=== PATIENT | male | born 1960 | race African-American/Black ===

== ENCOUNTER 2020-12-27 16:39 | Emergency (ER) | payer OTHER ==
[~2020-12-27] VITALS: Ht 180.3 cm; Wt 79.4 kg
[2020-12-27 16:48] VITALS: BP_SYST 128
--- NOTE | 2020-12-27 16:50 | NUR ---
Patient noted in room 5. Sitter at bedside due to patient being on 5150. XRay of hand being completed.
--- NOTE | 2020-12-27 16:55 | NUR ---
Portable X-ray done at bedside.
[2020-12-27 17:39] LABS: HEMOGLOBIN 12.1 g/dL (14.0-18.0)
[2020-12-27 17:43] LABS: ANION GAP 7 (5-15); CALCIUM 8.9 mg/dL (8.4-11.0); CHLORIDE 104 mmol/L (98-107); CREATININE 1.21 mg/dL (0.55-1.30); GFR AFRICAN AMERICAN 79 mL/min (>90); GLUCOSE 116 mg/dL (70-99); SODIUM SERUM 137 mmol/L (136-145); UREA NITROGEN, BLOOD 15 mg/dL (8-21)
[2020-12-27 17:44] LABS: BASOPHILS % (AUTO) 0.4 % (0.0-2.0); EOSINOPHILS # (AUTO) 0.1 K/uL (0.0-0.4); EOSINOPHILS % (AUTO) 2.2 % (0.0-4.0); HEMATOCRIT 36.5 % (36-54); INR 0.9 (0.80-1.20); LYMPHOCYTES # (AUTO) 2.4 K/uL (1.0-5.5); LYMPHOCYTES % (AUTO) 35.8 % (20.5-51.5); MEAN CORPUSCULAR HEMOGLOBIN 29 pg (27-31); MEAN CORPUSCULAR HGB CONC 33 % (32-36); MEAN CORPUSCULAR VOLUME 86 fL (79.0-98.0); MONOCYTES # (AUTO) 0.5 K/uL (0.0-1.0); MONOCYTES % (AUTO) 7.2 % (1.7-9.3); NEUTROPHILS # (AUTO) 3.7 K/uL (1.8-7.7); NEUTROPHILS % (AUTO) 54.4 % (40.0-70.0); PLATELET COUNT (AUTO) 306 K/uL (130-430); PROTHROMBIN TIME 10.1 SECS (9.5-12.5); RED BLOOD CELL COUNT(AUTO) 4.23 MIL/uL (4.2-6.2); RED CELL DISTRIBUTION WIDTH 14.9 % (9.0-15.0); WHITE BLOOD COUNT (AUTO) 6.7 K/uL (4.8-10.8)
[2020-12-27 17:48] LABS: ALANINE AMINOTRANSFERASE 28 U/L (12-78); ALBUMIN 3.2 g/dL (3.4-4.8); ASPARTATE AMINOTRANSFERASE 19 U/L (10-37); TOTAL BILIRUBIN 0.1 mg/dL (0.0-1.0)
[2020-12-27 18:00] LABS: C-REACTIVE PROTEIN QUANT < 0.2 mg/dL (0-0.5)
--- NOTE | 2020-12-27 18:14 | NUR ---
Patient resting in bed in no acute distress. Nonverbal when nurses communicate with him; however patient is able to follow simple commands. Dressing to left hand noted with small amount yellow mixed with serous drainage. Not currently draining. Sitter at bedside. Will continue to monitor.
--- NOTE | 2020-12-27 18:57 | NUR ---
Report given to Lori DE.
--- NOTE | 2020-12-27 19:05 | NUR ---
Spoke to Mel from [facility] regarding giving update on pt status.
[2020-12-27] MEDS ORDERED: BACITRACIN 1 GM OINT TP ONE (19:15)
--- NOTE | 2020-12-27 20:00 | NUR ---
PT REFUSED TO HAVE SLING PUT ON TO RIGHT SHOULDER. PT REFUSED TO HAVE RIGHT HAND WOUND CLEANED AND DRESSED. PT STATED "I DONT WANT YOU TOUCHING ME, I WANT TO GET OUT OF THIS FUCKING PLACE. YOU ARE ALL RACIST AND I DONT WANT TO BE HERE I HAVE A FUCKING BROKEN SHOULDER". MD JULIANA HOWARD ARE OF REFUSAL.
--- NOTE | 2020-12-27 21:00 | NUR ---
SPOKE TO SHAI FROM [facility] AND GAVE REPORT AND UPDATE ON STATUS.
--- NOTE | 2020-12-27 21:10 | NUR ---
SANDWICH AND ORANGE JUICE PROVIDED TO PT. TOLERATED WELL.
--- NOTE | 2020-12-27 21:30 | NUR ---
FOLLOWED UP WITH TRANSPORTATION. NEW ETA GIVEN OF 2230.
[2020-12-27 22:54] VITALS: BP_SYST 127
--- NOTE | 2020-12-27 22:54 | NUR ---
Patient given written and verbal discharge instructions and verbalizes understanding. DR. JULIANA LEIJA MD discussed with patient the results and treatment provided. Patient in stable condition. ID arm band removed. Patient educated on pain management and to follow up with PMD. Pain Scale 0/10 Opportunity for questions provided and answered. Medication side effect fact sheet provided. [facility] TO [employer] PATIENT. REPORT GIVEN.
== END 2020-12-27 22:54 ==
LOC: SED 16:39
DX: S43.101A Unspecified dislocation of right acromioclavicular joint, initial encounter (principal); L98.499 Non-pressure chronic ulcer of skin of other sites with unspecified severity; X58.XXXA Exposure to other specified factors, initial encounter; Y93.89 Activity, other specified; Y92.89 Other specified places as the place of occurrence of the external cause; Y99.8 Other external cause status
CPT/HCPCS: 36415; 73030; 80053; 83605; 85025; 85610-TC; 85730-TC; 86140; 99284